=== PATIENT | male | born 1940 | race Caucasian/White ===

== ENCOUNTER → 2016-09-21 | Day surgery (SDC) | payer MEDICARE, OTHER ==
[~2016-09-21] MED LIST: Lactated Ringers 1,000 ML IV SCH; Lactated Ringers 1,000 ML ONE; Propofol 200 MG/20 ML SDV IV ONE
[2016-09-21 08:03] VITALS: BP 132/76
--- NOTE | 2016-09-21 11:21 | OR ---
DATE OF OPERATION: 09/21/2016 PREOPERATIVE DIAGNOSIS: RIGHT UPPER QUADRANT PAIN. POSTOPERATIVE DIAGNOSIS: RIGHT UPPER QUADRANT PAIN. SURGEON: Seferino Liu MD PROCEDURE: ESOPHAGOGASTRODUODENOSCOPY WITH POLYP REMOVAL X1, BIOPSY X3, JAISON. 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 COMPLICATIONS: None. SPECIMEN: 1. CLOtest. 2. Distal esophageal biopsy x2. 3. Antral polyp. FINDINGS: 1. Full-length EGD. 2. No signs of peptic ulcer disease. 3. Small antral polyp, adenomatous in nature. 4. 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 PLAN: We will follow this patient up once pathology is back. INDICATIONS: The patient has some persistent right upper quadrant pain, and we elected to proceed with EGD after gallbladder ultrasound was negative. DESCRIPTION OF PROCEDURE: The patient was prepped and draped, placed in the left lateral decubitus position. A lubricated Olympus gastroscope was inserted and easily intubated in the esophagus. Esophageal lining was benign until its most distal portion. The Z-line was sharp at 39 cm. The patient does have a few small short segment Foster's changes, probably related to chronic GERD. No off inflammatory esophagitis, ulceration, or stricturing. We did do a biopsy of the two short-segment Foster's areas. The scope was advanced into the stomach through the pylorus into the third portion of the duodenum. This and the duodenal bulb were completely benign. The scope was brought back into the stomach and retroflexed. The upper fundus and cardia were completely unremarkable throughout the entire length of the stomach. No signs of any gastritis or peptic ulcer disease was seen. The patient did have a small adenomatous polyp in the proximal antrum, which was removed in its entirety with cold forceps. No other lesions were seen in the antrum. The pyloric area looked benign. CLOtest was obtained. Air was then suctioned, scope removed without complication. ANDREA/TRISHA /[id number]
== END ==
LOC: CC.SDS 06:34
PROVIDERS: ATTEND Family Medicine
DX: K20.9 Esophagitis, unspecified (principal); K31.7 Polyp of stomach and duodenum; F41.9 Anxiety disorder, unspecified; N40.0 Benign prostatic hyperplasia without lower urinary tract symptoms; K21.9 Gastro-esophageal reflux disease without esophagitis; I10 Essential (primary) hypertension; E78.00 Pure hypercholesterolemia, unspecified; G47.30 Sleep apnea, unspecified; Z88.8 Allergy status to other drugs, medicaments and biological substances; Z72.0 Tobacco use
CPT/HCPCS: 00740; 43239; 87081; J2704; J7120; 88305

== ENCOUNTER → 2021-04-14 | Day surgery (SDC) | payer MEDICARE, OTHER ==
[~2021-04-14] MED LIST changes: -Lactated Ringers 1,000 ML ONE; -Propofol 200 MG/20 ML SDV IV ONE; +Propofol 200 MG/20 ML SDV ONE; +fentaNYL 100 MCG/2 ML SDV ONE
[2021-04-14 10:42] VITALS: BP 112/68; PULSE 55
--- NOTE | 2021-04-15 06:36 | OR ---
DATE OF OPERATION: 04/14/2021 PREOPERATIVE DIAGNOSIS: 1. HEME-POSITIVE STOOL. 2. EPIGASTRIC PAIN. POSTOPERATIVE DIAGNOSIS: 1. HEME-POSITIVE STOOL. 2. EPIGASTRIC PAIN. SURGEON: Seferino Liu MD PROCEDURE: 1. DIAGNOSTIC ESOPHAGOGASTRODUODENOSCOPY WITH BIOPSY X1, JAISON, INFLAMMATORY POLYP REMOVAL X1. 2. FULL-LENGTH DIAGNOSTIC COLONOSCOPY. ANESTHESIA: MAC. COMPLICATIONS: None. SPECIMEN: 1. Fundal polyp. 2. Distal esophageal biopsy x1. 3. Antral JAISON. FINDINGS: 1. Full-length diagnostic EGD. 2. Fundal polyposis. 3. Spontaneous GERD with likely short-segment Foster's changes. 4. Full-length diagnostic colonoscopy. 5. Sigmoid diverticulosis, mild. RECOMMENDATIONS: Medical followup for path in the next 2 weeks. INDICATIONS: The patient was in for routine physical, was found to have heme- positive stool. He has no anemia, but he was having epigastric pain. We elected to proceed with both upper and lower endoscopy. DESCRIPTION OF PROCEDURE: The patient was prepped and draped, placed in the left lateral decubitus position. A lubricated Olympus gastroscope was inserted over a bit, advanced to the cricopharyngeus area, and easily intubated into the esophagus. The esophageal lining was benign in its entire course. The Z-line was crisp, around 42 to 43 cm. There was 1 area of short-segment Foster's changes with some spontaneous reflux visualized. No ulceration or inflammatory changes seen. We did do a biopsy of that. The scope was advanced into the stomach, through the pylorus, and into the second portion of the duodenum. This and the duodenal bulb were completely benign. The scope was brought back into the stomach and retroflexed. The cardia portion of the stomach was unremarkable. Basically, the patient has diffuse adenomatous polyps in the fundus. There was 1 inflammatory one in the distal fundus and we did remove that with a forceps biopsy x3. The antrum was unremarkable. We did a CLOtest. Air was then suctioned. The scope removed without complication. A lubricated Olympus colonoscope was then inserted and with ease advanced to the cecum. Direct visualization of the ileocecal valve and appendiceal orifice was accomplished. The bowel prep was adequate. Upon withdrawal of the scope throughout the entire length of the colon, I could find no polyps, masses, ulceration, or bleeding sites. There were no vascular abnormalities or signs of colitis. The patient does have scattered diverticula throughout the sigmoid area, very mild in severity. No inflammatory changes seen. The rectal vault was benign. Retroflexion confirmed some perianal hemorrhoid disease, otherwise benign. Air was suctioned. The scope was removed without complication. ANDREA/TRISHA /[id number]
== END ==
LOC: CC.SDS 09:10
PROVIDERS: ATTEND Family Medicine
DX: K57.30 Diverticulosis of large intestine without perforation or abscess without bleeding (principal); K31.7 Polyp of stomach and duodenum; K21.9 Gastro-esophageal reflux disease without esophagitis; K29.50 Unspecified chronic gastritis without bleeding; N40.0 Benign prostatic hyperplasia without lower urinary tract symptoms; E78.00 Pure hypercholesterolemia, unspecified; I10 Essential (primary) hypertension; M16.9 Osteoarthritis of hip, unspecified; G47.30 Sleep apnea, unspecified; E53.8 Deficiency of other specified B group vitamins; Z88.8 Allergy status to other drugs, medicaments and biological substances; Z79.82 Long term (current) use of aspirin; Z79.899 Other long term (current) drug therapy; Z98.890 Other specified postprocedural states
CPT/HCPCS: 87081; 88305; 88342; J2704; J3010; J7120

== ENCOUNTER 2021-10-24 12:55 | Emergency (ER) | payer MEDICARE, OTHER ==
[2021-10-24 13:06] VITALS: PULSE 67
[2021-10-24] MEDS ORDERED: Morphine 2 MG/ML SYRINGE IVPUSH ONE (13:13)
[2021-10-24] MEDS ORDERED: Diphtheria,Pertussis(Acell),Tetanus Vaccine 0.5 ML Syringe IM ONE (13:52)
[2021-10-24] MEDS ORDERED: Bacitracin Oint 28.35 GM Tube TOP SCH (14:00)
[2021-10-24 14:06] VITALS: BP 165/82
== END 2021-10-24 14:15 | disposition home or self-care (01) ==
LOC: CC.ED 12:55
DX: S05.12XA Contusion of eyeball and orbital tissues, left eye, initial encounter (principal); I10 Essential (primary) hypertension; F41.9 Anxiety disorder, unspecified; K21.9 Gastro-esophageal reflux disease without esophagitis; Z23 Encounter for immunization; Z79.899 Other long term (current) drug therapy; Z88.1 Allergy status to other antibiotic agents; Z88.8 Allergy status to other drugs, medicaments and biological substances; Z79.82 Long term (current) use of aspirin; W01.198A Fall on same level from slipping, tripping and stumbling with subsequent striking against other object, initial encounter
CPT/HCPCS: 70450; 90471; 90715; 99283; 99284; A9270-GY; J2270

== ENCOUNTER → 2021-12-08 | Day surgery (SDC) | payer MEDICARE, OTHER ==
[~2021-12-08] MED LIST changes: +Ketamine 200 MG/20 ML MDV ONE; +Phenylephrine 1% 10 MG/ML SDV ONE
[2021-12-08 11:57] VITALS: BP 143/70; PULSE 54
== END ==
LOC: CC.SDS 08:53
PROVIDERS: ATTEND Family Medicine
DX: D12.0 Benign neoplasm of cecum (principal); K57.30 Diverticulosis of large intestine without perforation or abscess without bleeding; K21.9 Gastro-esophageal reflux disease without esophagitis; I10 Essential (primary) hypertension; E78.00 Pure hypercholesterolemia, unspecified; E55.9 Vitamin D deficiency, unspecified; G47.30 Sleep apnea, unspecified; N40.0 Benign prostatic hyperplasia without lower urinary tract symptoms; M16.9 Osteoarthritis of hip, unspecified; Z88.1 Allergy status to other antibiotic agents; Z88.2 Allergy status to sulfonamides; Z79.82 Long term (current) use of aspirin; Z79.899 Other long term (current) drug therapy
CPT/HCPCS: 45385; J2370; J2704; J3010; J7120

== ENCOUNTER 2025-05-12 10:37 | Day surgery (SDC) | payer MEDICARE, OTHER ==
[2025-05-12] MEDS: Lactated Ringers 1,000 ML IV SCH (11:10)
[2025-05-12 12:21] VITALS: BP 112/59; PULSE 52
== END 2025-05-12 12:35 | disposition home or self-care (01) ==
LOC: CC.SDS 10:37
PROVIDERS: ATTEND Family Medicine
DX: Z12.11 Encounter for screening for malignant neoplasm of colon (principal); K57.30 Diverticulosis of large intestine without perforation or abscess without bleeding; K21.9 Gastro-esophageal reflux disease without esophagitis; I10 Essential (primary) hypertension; E78.00 Pure hypercholesterolemia, unspecified; Z88.8 Allergy status to other drugs, medicaments and biological substances; Z79.82 Long term (current) use of aspirin; Z79.899 Other long term (current) drug therapy; Z86.0100 Personal history of colon polyps, unspecified
CPT/HCPCS: G0121; J7120

== ENCOUNTER 2025-05-29 17:30 | Emergency (ER) | payer MEDICARE, OTHER ==
[2025-05-29 18:14] LABS: BASOPHILS ABSOLUTE AUTO 0.01 10^3/uL (0.00-0.50); BASOPHILS PERCENT AUTO 0.1 % (0-1); EOSINOPHILS ABSOLUTE AUTO 0.09 10^3/uL (0.00-1.50); EOSINOPHILS PERCENT AUTO 1.0 % (0-6); IMMATURE GRAN ABSOLUTE AUTO 0.05 10^3/uL (0.00-0.49); IMMATURE GRAN PERCENT AUTO 0.6 % (0.0-4.9); LYMPHOCYTES ABSOLUTE AUTO 1.25 10^3/uL (0.60-5.00); LYMPHOCYTES PERCENT AUTO 14.4 % (24-44); MONOCYTES ABSOLUTE AUTO 0.45 10^3/uL (0.00-1.50); MONOCYTES PERCENT AUTO 5.2 % (0-10); NEUTROPHILS ABSOLUTE AUTO 6.85 x10^3/uL (1.80-8.00); NEUTROPHILS PERCENT AUTO 78.7 % (41-71); PLATELET COUNT,PLT 192 10^3/uL (150-400); RED BLOOD CELL COUNT 4.65 x10^6/uL (4.50-6.00); WHITE BLOOD CELL COUNT,WBC 8.7 10^3/uL (4.0-11.0)
[2025-05-29 18:27] LABS: ALANINE AMINOTRANSFERASE,ALT 29.0 U/L (12-78); ASPARTATE AMNIOTRANSFERASE,AST 17.0 U/L (15-37); BILIRUBIN TOTAL 0.4 mg/dL (0.0-1.0); BLOOD UREA NITROGEN,BUN 14.0 mg/dL (7-18); CARBON DIOXIDE,CO2 29.0 mmol/L (21-32); CHLORIDE,CL 102.0 mEq/L (98-106); CREATININE 0.9 mg/dL (0.7-1.3); EST CRCL DRUG DOSING (CG) 62.19 mL/min; ESTIMATED GFR 85.0 mL/min (>=60); GLUCOSE RANDOM 169.0 mg/dL (75-99); POTASSIUM,K 3.7 mEq/L (3.5-5.0); PROTEIN TOTAL,TP 6.5 g/dL (6.4-8.2); SODIUM,NA 141.0 mEq/L (136-145)
[2025-05-29 19:05] VITALS: BP 166/97; PULSE 76
== END 2025-05-29 19:48 ==
LOC: CC.ED 17:30
DX: T84.010A Broken internal right hip prosthesis, initial encounter (principal); I10 Essential (primary) hypertension; K21.9 Gastro-esophageal reflux disease without esophagitis; Z88.1 Allergy status to other antibiotic agents; Z88.8 Allergy status to other drugs, medicaments and biological substances; Z79.82 Long term (current) use of aspirin; Z79.899 Other long term (current) drug therapy
CPT/HCPCS: 36415; 80053; 85025; 96374; 96376; 99284; 99285-25; J1171